=== PATIENT | female | born 1955 | race Caucasian/White ===

== ENCOUNTER 2019-02-22 21:15 | Emergency (ER) | payer OTHER ==
[~2019-02-22] VITALS: Ht 154.9 cm; Wt 93.4 kg
[2019-02-22] MEDS ORDERED: EFFEXOR XR37.5 MG PO (21:27)
[2019-02-22] MEDS ORDERED: EXCEDRIN EXTRA1 EAC1 PO (21:27)
[2019-02-22] MEDS ORDERED: LOSARTAN POTASS25 MG PO (21:27)
[2019-02-22] MEDS ORDERED: ZANTAC150 MG PO (21:27)
[2019-02-22] MEDS ORDERED: IBU800 MG PO (21:28)
[2019-02-22] MEDS ORDERED: IRON240 MG PO (21:28)
[2019-02-22] MEDS ORDERED: ZOCOR40 MG PO (21:28)
[2019-02-22] MEDS ORDERED: CALCIUM500 MG PO (21:28)
== END 2019-02-22 22:27 | disposition home or self-care (01) ==
LOC: ED 21:15
DX: S63.613A Unspecified sprain of left middle finger, initial encounter (principal); S63.615A Unspecified sprain of left ring finger, initial encounter; W01.198A Fall on same level from slipping, tripping and stumbling with subsequent striking against other object, initial encounter; Z87.891 Personal history of nicotine dependence; Z88.0 Allergy status to penicillin; Z88.5 Allergy status to narcotic agent; Z88.2 Allergy status to sulfonamides; Z79.899 Other long term (current) drug therapy; Z79.82 Long term (current) use of aspirin
CPT/HCPCS: 73130; 99283

== ENCOUNTER 2020-11-09 17:21 | Emergency (ER) | payer OTHER ==
[~2020-11-09] VITALS: Ht 154.9 cm; Wt 93.4 kg
[~2020-11-09 17:21] MED LIST: CALCIUM500 MG PO; EFFEXOR XR37.5 MG PO; EXCEDRIN EXTRA1 EAC1 PO; IBU800 MG PO; IRON240 MG PO; LOSARTAN POTASS25 MG PO; ZANTAC150 MG PO; ZOCOR40 MG PO
[2020-11-09] MEDS ORDERED: OMEPRAZOLE40 MG PO (17:40)
[2020-11-09] MEDS ORDERED: CYMBALTA30 MG (17:40)
== END 2020-11-09 17:59 | disposition home or self-care (01) ==
LOC: ED 17:21
DX: S61.210A Laceration without foreign body of right index finger without damage to nail, initial encounter (principal); W26.0XXA Contact with knife, initial encounter; Z87.891 Personal history of nicotine dependence; Z88.0 Allergy status to penicillin; Z88.2 Allergy status to sulfonamides; Z88.5 Allergy status to narcotic agent; Z79.899 Other long term (current) drug therapy
CPT/HCPCS: 99282

== ENCOUNTER 2021-06-08 09:58 | Emergency (ER) | payer MEDICARE, OTHER ==
[~2021-06-08] VITALS: Ht 154.9 cm; Wt 97.1 kg
[~2021-06-08 09:58] MED LIST changes: +CYMBALTA30 MG; +OMEPRAZOLE40 MG PO
[2021-06-08] MEDS ORDERED: METHOCARBAMOL500 MG PO (10:15)
== END 2021-06-08 11:25 | disposition home or self-care (01) ==
LOC: ED 09:58
DX: S01.21XA Laceration without foreign body of nose, initial encounter (principal); W01.198A Fall on same level from slipping, tripping and stumbling with subsequent striking against other object, initial encounter; Z87.891 Personal history of nicotine dependence; Z88.0 Allergy status to penicillin; Z88.5 Allergy status to narcotic agent; Z88.2 Allergy status to sulfonamides; Z79.899 Other long term (current) drug therapy; Z79.82 Long term (current) use of aspirin
CPT/HCPCS: 99283

== ENCOUNTER 2021-11-22 02:04 | Inpatient (IN) | payer OTHER ==
[~2021-11-22] VITALS: Ht 154.9 cm; Wt 101.6 kg
[~2021-11-22 02:04] MED LIST changes: +METHOCARBAMOL500 MG PO
--- NOTE | 2021-11-22 05:17 | NUR ---
PT ADMITTED TO ROOM [id number], A/O, INDEPENDENTLY TO BATHROOM OFF STRETCHER. 1LO2, NOT CHRONIC. STATES SHE GOT COVID FROM HER FRIENDS, HAS BEEN ILL SINCE MONDAY. RETIRED , [employer]. LIVES ALONE WITH EXCEPTION 6 DOGS AND 5 CATS. MEDICATIONS FROM [facility] CURRENTLY, HOWEVER WILL BE TRANSFERING TO [facility]. REQUIRES NO DME, NO ASSISTANCE.
--- NOTE | 2021-11-22 05:54 | NUR ---
PT REQUESTED TYLENOL FOR RESIDUAL LOVE, 650MG PO PRN ADMINISTERED. PT ALERT AND ORIENTED AT THIS TIME, RESTING IN BED, SHE VERBALIZED LOOKING FORWARD TO BREAKFAST. NO OTHER NEW CONCERNS OR REQUESTS FROM PT THIS AM. ASSESSMENT COMPLETE.
--- NOTE | 2021-11-22 07:36 | NUR ---
REPORT FROM RAQUEL ANAYA RN.
--- NOTE | 2021-11-22 09:26 | NUR ---
MORNING ASSESSMENT DONE. PATIENT IS 95% ON .5L. PATIENT TO ROOM AIR AND 91% PATIENT WITH PRODUCTIVE COUGH AT THIS TIME, RN GAVE INCENTIVE SPIROMETER AND PATIENT IS DEMONSTRATE USE. PATIENT DOES ENDORSE A HEADACHE, NO OTHER NEEDS AT THIS TIME.
--- NOTE | 2021-11-22 10:56 | NUR ---
DR. HOWARD IN TO SEE PATIENT, LIKELY THAT PATIENT WILL DISCHARGE LATER TODAY.
--- NOTE | 2021-11-22 11:28 | NUR ---
PATIENT UP TO AMBULATE IN ROOM. PATIENT IS ON ROOM AIR AND OXYGEN SATS ARE BETWEEN 92 AND 95% WITH AMBULATION. PATIENT GIVEN TORADOL IV FOR HEADACHE, IV IS SALINE LOCKED.
--- NOTE | 2021-11-22 12:03 | NUR ---
UNABLE TO VISIT PT IN PERSON DUE TO PRECAUTIONS. WILL FOLLOW NEEDED
--- NOTE | 2021-11-22 12:32 | NUR ---
REVIEW OF MONOCLONAL ANTIBODIES INFORMATION WITH PATIENT. MEDICATION GIVEN OVER 30 SECONDS. WE WILL MONITOR PATIENT OVER THE NEXT HOUR BEFORE DISCHARGING.
--- NOTE | 2021-11-22 14:05 | NUR ---
IV removed WNL, VSS, all personal belongings returned. Pt taken out via WC.
== END 2021-11-22 13:55 | disposition home or self-care (01) | DRG 179 ==
LOC: ED 02:04 → MS 03:47
PROVIDERS: ADMIT Internal Medicine; ATTEND Internal Medicine
PROC: XW033H6 Introduction of Other New Technology Monoclonal Antibody into Peripheral Vein, Percutaneous Approach, New Technology Group 6 (ICD-10-PCS; principal; 2021-11-22)
PROC: 3E0333Z Introduction of Anti-inflammatory into Peripheral Vein, Percutaneous Approach (ICD-10-PCS; 2021-11-22)
PROC: XW033E5 Introduction of Remdesivir Anti-infective into Peripheral Vein, Percutaneous Approach, New Technology Group 5 (ICD-10-PCS; 2021-11-22)
PROC: 8E0ZXY6 Isolation (ICD-10-PCS; 2021-11-22)
DX: U07.1 COVID-19 (principal); R09.02 Hypoxemia; I10 Essential (primary) hypertension; F32.A Depression, unspecified; F43.10 Post-traumatic stress disorder, unspecified; G51.0 Bell's palsy; E89.0 Postprocedural hypothyroidism; K21.9 Gastro-esophageal reflux disease without esophagitis; Z79.899 Other long term (current) drug therapy; Z87.891 Personal history of nicotine dependence; Z98.890 Other specified postprocedural states; Z90.710 Acquired absence of both cervix and uterus; Z88.2 Allergy status to sulfonamides; Z88.5 Allergy status to narcotic agent; Z23 Encounter for immunization
CPT/HCPCS: 36415; 71045; 80053; 85025; 87502; 96361; 96374; 96375; 99284-25; A9270; C9803; J0248; J1100; J1885; J2405; J7030; J7050; J7121; U0003

== ENCOUNTER 2022-10-11 10:56 | Emergency (ER) | payer OTHER, MEDICARE ==
[~2022-10-11] VITALS: Ht 157.5 cm; Wt 104.5 kg
[2022-10-11] MEDS ORDERED: PREDNISONE20 MG PO (11:26)
[2022-10-11] MEDS ORDERED: BUPROPION HCL100 MG PO (11:26)
[2022-10-11] MEDS ORDERED: TRIAMTERENE50 MG PO (11:27)
[2022-10-11 14:45] VITALS: BP 175/102
== END 2022-10-11 14:45 | disposition home or self-care (01) ==
LOC: ED 10:56
DX: M31.6 Other giant cell arteritis (principal); I10 Essential (primary) hypertension; Z87.891 Personal history of nicotine dependence; Z88.0 Allergy status to penicillin; Z88.2 Allergy status to sulfonamides; Z88.5 Allergy status to narcotic agent; Z79.899 Other long term (current) drug therapy; Z79.52 Long term (current) use of systemic steroids
CPT/HCPCS: 36415; 80053; 85025; 85651; 86140